=== PATIENT | male | born 1975 | race Caucasian/White ===

== ENCOUNTER 2025-08-23 13:25 | Emergency (ER) | payer MEDICARE, OTHER, SELFPAY ==
--- OUTSIDE RECORDS SUMMARY | 2025-08-23 13:27 | XMS_ITS | Encounter Summary ---
Author Organization [facility] Address [address] [place] [address] Care Team Providers Care Hygiene Assistant Name Role Phone Stephane Matos MD Primary Care Provider Reason for Visit * Reason Comments CHEST SYMPTOMS CHEST PAIN Encounter Details Date Type Department Care Team (Late st Contact Info) Description 08/23/2025 Nurse Triage Careline [address] [place], [place] [phone] [place] [address] [place], [place] [phone] CHEST SYMPTOMS; CHEST PAIN Social History Tobacco Use Types Packs/Day Years Used Date Smoking Tobacco: Former Cigarettes 1 8 1 12/20/1995 - 10/20/2004 Passive Smoke Exposure: Never Smokeless Tobacco: Never Alcohol Use Standard Drinks/Week Comments No 0 (1 standard drink = 0.6 oz pur e alcohol) PHQ-2 Answer Date Recorded PHQ-2 Score 0 04/07/2025 Food Insecurity Answer Date Recorded Does your food run out before you have the money to buy more? No 03/13/2023 Transportation Needs Answer Date Record ed Does a lack of transportatio n keep you from your medical appointments or from getting your medications? No 023 Sex and Gender Information Value Date Recorded Sex Assigned at Not on file Legal Sex Male 3:50 AM CDT Gender Identity Not on file Sexual Orientation Not on file documented as of this encounter Nursing Notes * Sanjuana Barahona, RN - 08/23/2025 1:02 PM CDT 1:02 PM Call transferred from Careline executive receptionist. Pt calling stating 10 days ago he injured his left shoulder while walking his dog. This morning has developed pain in his chest. Situation/Background: pt calling stating 10 days ago he injured his left shoulder. Was walking his dog, was trying to keep his dog away from another dog. This morning developed pain in the left side of his chest muscle/pectoral muscle. Hurts when he takes in a deep breath. Pain comes and goes. Has pain in his shoulder When he moves his arm. Concerned, asking for advice what he should do. Reviewed pertinent medical history (as relates to the call): Yes Reviewed pertinent medications (as relates to the call): NA Reason for Disposition [1] Chest pain lasts > 5 minutes AND [2] age > 30 AND [3] one or more cardiac risk factors (e.g., diabetes, high blood pressure, high cholesterol, obesity with BMI 30 or higher, smoker, or strong family history of heart disease) Protocols used: Chest Bfoi-Uknwi-LP PLAN:advised pt call 911 now. Pt declined. Stated he will drive to the ER. Sanjuana Barahona RN careline * Kasey Medley - 08/23/2025 12:56 PM CDT Verified patient using 3 identifiers: Yes Caller reports the following red flag symptoms: Patient has concerns is having whether or not he ishaving possible chest pain or muscle pain - Injured shoulder 10 days ago while walking his dog Plan: Transferred directly to a CareLine RN. documented in this encounter Plan of Treatment Upcoming Encounters Date Type Department Care Team (Late st Contact Info) Description 08/28/2025 3:10 PM CDT Appointment [facility] [address] [place] [address] [place] [address] [place], [place] [phone] 09/04/2025 3:00 PM CDT Appointment [facility] [address] [place] [address] 10/28/2025 4:00 PM TOP COLLAR BASTER Appointment [facility] [address] [place] [phone] Macy Polanco, [facility] [address] [place], [place] [phone] documented as of this encounter Goals Goal Patient Goal Type Associated Problems Recent Progress Patient-Stated? Author Eating healthy Diabetes Education Diabetes Education No Emerita Will RN, CDE Note: Eating Healthy: I will start counting carbohydrates to try to get 45-60 grams each meal documented as of this encounter Visit Diagnoses Not on filedocumented in this encounter Care Teams Hygiene Assistant Relationship Specialty Start [place] [address] [place], [place] [phone] PCP - General Family Practice 02/10/19 documented as of this encounter
--- OUTSIDE RECORDS SUMMARY | 2025-08-23 13:27 | XMS_ITS | Encounter Summary ---
[facility] Address [address], [place] [address] Care Team Providers Care Steel Inspector Name Role Phone Stephane Feliz MD Primary Care Provider Reason for Visit * Reason Onset Date Comments Refill 07/29/2025 lancets (ACCU-CH EK FASTCLIX) Encounter Details Date Type Department Care Team (Late st Contact Info) Description 07/29/2025 Refill [facility] [address] [place] [address] [place] [address] [place], [place] [phone] Refill (lancets (ACCU-CHEK FASTCLIX)) Social History Tobacco Use Types Packs/Day Years [...] as of this encounter Nursing Notes * Ivett Zimmerman, RN - 08/03/2025 9:16 AM CDT Further Assistance Needed on Refill from Clinician RN reviewed. Signed order needed. Previous medication order has . Review pended order for accuracy and sign if appropriate Requested Prescriptions Pending Prescriptions Disp Refills lancets (ACCU-CHEK FASTCLIX) 100 Each 3 Sig: Use 1 Each to test daily. Test bg 1 time per day * KevinperfectoMark Xrwcomm - 07/29/2025 4:19 PM CDT lancets (ACCU-CHEK FASTCLIX) Medication started: 01/01/2020 Last ordered by STEPHANE FELIZ: 01/02/2023 (939 days ago) QTY: 100, Refills: 3, Sig: use 1 each to test daily. test bg 1 time per day (unchanged) -> The most recent order on 12/22/2024. -> Co-sign for patients 65 years or older or any patient on Medicare -> Refill x 9 months (until due for an office visit) -> Calculate the quantity and number of refills manually. Last qualifying visit: 04/07/2025 (with STEPHANE FELIZ) Next scheduled visit: [facility] Embedded Refills, Reference: [id number], 07/29/2025 4:19:08 PM CDT, Pool: Refill Centralized Services - Primary Care ([id number]) documented in this encounter Plan of Treatment Upcoming Encounters Date Type Department Care Team (Late st Contact Info) Description 08/28/2025 3:10 PM CDT Appointment [facility] [address] [place] [phone] [place] [address] [place], [place] [phone] 09/04/2025 3:00 PM CDT Appointment [facility] [address] [place] [address] 10/28/2025 4:00 PM TRANSFORMER MAKER Appointment [facility] [address] [place] [phone] Macy Polanco, [facility] [address] [place], [place] [phone] documented as of this encounter Goals Goal Patient Goal Type Associated Problems Recent Progress Patient-Stated? Author Eating healthy Diabetes Education Diabetes Education Emerita Nieves, RN, CDE Note: Eating Healthy: I will start counting carbohydrates to try to get 45-60 grams each meal documented as of this encounter Visit Diagnoses Diagnosis Type 2 diabetes mellitus without complication, without long-term current use of insulin (HRC)- Primary documented in this encounter Care Teams Steel Inspector Relationship Specialty [place] [address] [place] [address] PCP - General Family Practice 02/10/19 documented as of this encounter
--- OUTSIDE RECORDS SUMMARY | 2025-08-23 13:27 | XMS_ITS | Encounter Summary ---
Author Organization [facility] Address [address] [place] [address] Care Team Providers Care Cigar Head Pegger Name Role Phone Stephane Matos MD Primary Care Provider [phone] Encounter Details Date Type Department Care Team (Late st Contact Info) Description 11/02/2014 Correspondence External to External, [place] [address] LETTER REQUESTING PRESCRIPTION REORDER Social History Tobacco Use Types Packs/Day Years Used Date Smoking Tobacco: Never Smokeless Tobacco: Never Alcohol Use Standard Drinks/Week Comments No 0 (1 standard drink = 0.6 oz pur e alcohol) Sex and Gender Information Value Date Recorded Sex Assigned at Not on file Legal Sex Male 3:50 AM CDT Gender Identity Not on file Sexual Orientation Not on file 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 [address] 10/28/2025 4:00 PM CEMENT PRODUCTION PLANT OPERATOR [facility] [address] [place] [phone] Macy Polanco, [facility] [address] [place] [address] documented as of this encounter Visit Diagnoses Not on filedocumented in this encounter Care Teams Cigar Head Pegger Relationship Specialty Start [place] [address] [place] [address] PCP - General Family Practice 02/10/19 documented as of this encounter
--- OUTSIDE RECORDS SUMMARY | 2025-08-23 13:27 | XMS_ITS | Encounter Summary ---
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 Not on file Not on file documented as of this encounter Plan of Treatment Upcoming Encounters Date Type Department Care Team (Late st Contact Info) Description 08/28/2025 3:10 PM CDT Appointment [facility] [address] [place] [phone] [place] [address] [place], [place] [phone] 09/04/2025 3:00 PM CDT Appointment [facility] [place] [address] [place] [address] 10/28/2025 4:00 PM RESEARCH KENNEL SUPERVISOR [facility]ment [facility] [address] [place] [phone] Macy Polanco, [facility] [address] [place] [address] documented as of this encounter Goals Goal Patient Goal Type Associated Problems Recent Progress Patient-Stated? Author Eating healthy Diabetes Education Diabetes Education Emerita Nieves, RN, CDE Note: Eating Healthy: I will start counting carbohydrates to try to get 45-60 grams each meal documented as of this encounter Visit Diagnoses Not on filedocumented in this encounter Care Teams Furniture Duster Relationship Specialty Start [place] [address] [place], [place] [phone] PCP - General Family Practice 02/10/19 documented as of this encounter
--- OUTSIDE RECORDS SUMMARY | 2025-08-23 13:27 | XMS_ITS | Clinical Summary ---
Author Organization [facility] Address [address], [place] [address] Care Team Providers Care Private Secretary Name Role Phone Stephane Matos MD Primary Care Provider [phone] Source Comments You are receiving this document as you are listed as the primary care provider,follow-up provider, or the patient has been referred to you for consultation.This is in compliance with the Medicare and[facility] EHR Incentive Program,which states Providers who transition their patient to another setting of careor provider of care or refers their patient to another provider of care shouldprovide summary care record for each transition of care or referral. Aircraft Logs Allergies No known active allergies Medications Multiple Vitamins-Minera ls (MULTI VITAMIN/MINERAL S OR) Active Dacono-3 Fatty Acids 1200 MG 3,000 mg. Active cholecalciferol (VITAMIND3) 50 MCG (2000 UT) tablet Take 2 Tablets (4,000 Units) by mouth daily. Active haloperidol (HALDOL) 2 MG tablet 1 Tablet (2 mg) daily as needed. 06/05/20 17 Active aspirin EC 81 MG enteric coated tablet Take 1 Tablet (81 mg) by mouth daily. Active ALBUterol sulfate HFA 108 (90 Base) MCG/ACT inhalerIndicati ons:Mild intermittent asthma, unspecified whether complicated (HRC) Inhale 2 Puffs every 4 hours as needed for Wheezing. 8.5 g 04/07/20 25 Active metFORMIN XR (GLUCOPHAGE XR) 500 MG 24 hour release tabletIndicatio ns:Type 2 diabetes mellitus without complication, without long-term current use of insulin (HRC) Take 4 Tablets (2,000 mg) by mouth every evening with a meal. 360 Tablet 3 04/07/20 25 Active rosuvastatin (CRESTOR) 10 MG tabletIndicatio ns:Dyslipidemia (HRC) Take 1 Tablet (10 mg) by mouth daily. 90 Tablet 3 04/07/20 25 Active Continuous Glucose Sensor (FREESTYLE DAVID 3 PLUS SENSOR) MISCIndications :Type 2 diabetes mellitus without complication, without long-term current use of insulin (HRC) Use as directed for continuous blood glucose monitoring. Replace sensor every 14 days. 1 Each 1 04/12/20 25 Active lancets (ACCU-CHEK FASTCLIX)Indica tions:Type 2 diabetes mellitus without complication, without long-term current use of insulin (HRC) Use 1 Each to test daily. Test bg 1 time per day 100 Each 3 08/04/20 25 Active empagliflozin (JARDIANCE) 10 MG tabletIndicatio ns:Type 2 diabetes mellitus without complication, without long-term current use of insulin (HRC) Take 1 Tablet (10 mg) by mouth daily. 14 Tablet 07/29/20 25 026 Active empagliflozin (JARDIANCE) 25 MG tabletIndicatio ns:Type 2 diabetes mellitus without complication, without long-term current use of insulin (HRC) Take 1 Tablet (25 mg) by mouth daily. Do not start before August 12, 2025. 90 Tablet 3 08/12/20 25 026 Active blood glucose (ACCU-CHEK GUIDE TEST) test stripIndication s:Type 2 diabetes mellitus without complication, without long-term current use of insulin (HRC) Use to test daily. 100 Each 08/03/20 25 Active lancets (ACCU-CHEK FASTCLIX)Indica tions:Type 2 diabetes mellitus without complication, without long-term current use of insulin (HRC) Use 1 Each to test daily. Test bg 1 time per day 100 Each 3 01/02/20 23 025 Discontinued(* Med change OR same med OR reorder, new dose/direction s) ACCU-CHEK GUIDE test stripsIndicatio ns:Type 2 diabetes mellitus without complication, without long-term current use of insulin (HRC) USE TO TEST DAILY 100 Strip 3 06/30/20 24 025 Discontinued Hospital, Clinic, or Other Facility Administered Medication Ordered Dose Route Frequency Start Date End Date Status paliperidone palmitate (INVEGA TRINZA) MAGGIE 819 mgIndications:Paranoid schizophrenia ([facility]) 819 mg IM EVERY 90 DAYS 09/02/2021 Ac tive Active Problems Problem Noted Date Diagnosed Date Diabetes Education 09/11/2018 Type 2 diabetes mellitus wit hout complication, without long-term current use of insulin 09/03/2018 Dyslipidemia 09/18/2017 Mild intermittent asthma 02/11/2013 Prehypertension 09/19/2010 Obesity 09/03/2006 Overview (06/14/2009): BMI 37 Paranoid schizophrenia 03/19/2006 Overview (08/26/2015): Epic Resolved Problems Problem Noted Date Diagnosed Date Resolved Date Vitamin D deficiency 07/03/2012 015 Prediabetes 06/22/2010 09/03/2018 Hyperlipidemia with target LDL less than 130 06/14/200 9 09/18/2017 Overview (08/04/2015): ICD 10 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 [address] Stephane Matos MD CHEST SYMPTOMS; CHEST PAIN 07/29/2025 Nurse Triage [facility] [address] [place] [phone] Stephane Matos MD High Blood Sugar (300's) 07/29/2025 Refill [facility] [address] [place] [phone] Stephane Matos MD Refill (lancets (ACCU-CHEK FASTCLIX)) 07/29/2025 Refill [facility] [address] [place] [phone] Stephane Matos MD Refill (blood glucose (ACCU-CHEK GUIDE) test strip) 06/01/2025 3:45 PM CDT Nursing Visit [facility] [address] [place], [place] [address] Paranoid schizophrenia (HRC) (Primary Dx) 05/26/[address] [facility] [address] [place], [place] [phone] Stephane Matos MD Medication Questions from Last 3 Months Immunizations Immunization Administration Dates Next Due Flu Vac (3+ yrs) 08/16/2021, 2,09/04/2011,2008,09/04/2008,09/02/2007 H1n1 Miv Nov[employer] 4+ Yr (Injected) 12/08/2009 Influenza (Flucelvax), Prese rv Free QIV 07/31/2019 Influenza IIV4 (Quadrivalent ) 0.5mL ([id number]) 08/24/2023,08/16/2022,08/16/2021,2019,07/31/2019,09/03/2018,09/18/2017,1 ,08/05/2015,08/13/2014, 013 Influenza ccIIV3 6 months+ (Flucelvax) 08/08/2024 Moderna Bivalent 12+ 08/16/2022 Moderna COVID-19 12+ 01/13/2025,08/24/2023 Moderna Monovalent 12+ 09/25/2021,01/10/2021, PCV20 ([id number]) 01/14/2023 PPSV23 (Pneumovax) 11/09/2016 Td, Preservative Free 04/27/2005 Tdap 08/17/2021,06/26/2011 Zoster RZV (Shingrix) 12/15/2023,08/24/2023 Family History Medical History Relation Name Comments Cataract Father Coronary Artery Disease Father Depression Father Diabetes, Type II Father Hypertension Father Cataract Mother Corneal Dystrophy Brother 1 Cancer, Other Brother 2 testicular Asthma Brother 3 Macular Degeneration Maternal Grandmother Cataract Paternal Grandmother Anxiety Sister 2 Obesity Sister 3 Scoliosis Sister 4 Glaucoma Negative Family History Relation Name Status Comments Father Alive Mother Alive Brother 1 Alive Brother 2 Brother 3 Maternal Grandmother Paternal Grandmother Sister 1 Alive Sister 2 Sister 3 Sister 4 Social History Tobacco Use Types Packs/Day Years Used Date Smoking Tobacco: Former Cigarettes 1 8 1 12/20/1995 - 10/20/2004 Passive Smoke Exposure: Never Smokeless Tobacco: Never Tobacco Cessation:Counseling Given: Not Answered Alcohol Use Standard Drinks/Week Comments No 0 [...] on file Sexual Orientation Not on file Last Filed Vital Signs Vital Sign Reading Time Taken Comments Blood Pressure 128/85 06/01/2025 3:43 PM CDT Pulse 81 06/01/2025 3:43 PM CDT Temperature 35.4 C (95.8 F) 09/11/2023 3:51 PM CDT Patient reported Respiratory Rate 18 03/10/2022 8:44 AM CDT Oxygen Saturation 96% 01/31/2024 3:1 5 PM CAST SHELL GRINDER Inhaled Oxygen Concentration - - Weight 118.3 kg (260 lb 12. 8 oz) 04/07/2025 2:12 PM CDT Height 185.8 cm (6' 1.15) 04/07/2025 2 :12 PM CDT Body Mass Index 34.27 04/07/2025 2:12 PM CDT Plan of Treatment Upcoming Encounters Date Type Department Care Team (Late st Contact Info) Description 08/28/2025 3:10 PM CDT Appointment [facility] [address] [place] [phone] [place] [address] [place], [place] [phone] 09/04/2025 3:00 PM CDT Appointment [facility] [place] [address] [place] [address] 10/28/2025 4:00 PM CAST SHELL GRINDER Appointment [facility] [place] [address] [place] [phone] [place] p[place] Quang, [facility] [address] [place] [address] Health Maintenance Due Date Last Done Comments Diabetes: Eye Exam 03/04/2025 03/04/2024, 0 03/04/2024, 02/28/2023, Additional history exists Influenza Vaccine (#1) 2025 , 08/24/2023, 08/16/2022, Additional history exists Diabetes: HGBA1C 08/26/2025 02/24/2025, 11/2024, 08/08/2024, Additional history exists Diabetes: Albumin/Creatinine Ratio, Urine 02/24/2026 02/24/2025, 11/27/2023, 12/29/2022, Additional history exists PSA Screening Discussion 02/24/2026 025, 08/20/2023, 08/20/2023, Additional history exists Diabetes: Creatinine 04/07/2026 04/07/2025, 04/23/2024, 05/04/2023, Additional history exists Diabetes: Foot Exam 04/07/2026 04/07/2025, 01/31/2024, 01/02/2023, Additional history exists Medicare Annual Wellness Visit 04/07/2026 04/07/2025, 01/31/2024, 07/12/2022, Additional history exists FIT Colon Cancer Screening 04/09/202604/09, 05/01/2024, 05/15/2023, Additional history exists Diabetes: Lipid Panel 02/24/2030 02/24/2025 , 08/20/2023, 06/27/2022, Additional history exists DTaP/Tdap/Td Vaccine (3 - Tdap) 08/17/2031 08/17/2021, 06/26/2011, 04/27/2005 HIV Screening (Preventive Services) Completed 11/04/2015 Hep C Screening (Preventive Services) Completed 07/12/2022 Pneumococcal Vaccine 50+ Yrs Completed 01/14/2023, 11/09/2016 Zoster/Shingles Vaccine Completed 12/15/2023, 08/24 COVID-19 Vaccine Completed 08/14/2025, , 08/24/2023, Additional history exists HepA Vaccine Aged Out No longer eligi ble based on patient's age to complete this topic Hib Vaccine Aged Out No longer eligi ble based on patient's age to complete this topic IPV (Polio) Vaccine Aged Out No longe r eligible based on patient's age to complete this topic MCV4 Vaccine Aged Out No longer eligi ble based on patient's age to complete this topic Meningococcal B Vaccine Aged Out No l onger eligible based on patient's age to complete this topic Goals Goal Patient Goal Type Associated Problems Recent Progress Patient-Stated? Author Eating healthy Diabetes Education Diabetes Education No Emerita Will, RN, CDE Note: Eating Healthy: I will start counting carbohydrates to try to get 45-60 grams each meal Procedures Procedure Name Priority Date/Time Associated Diagnosis Comments FIT,OCCULT BLOOD, STOOL -CLINICAL REMINDER Routine 04/09/2025 10:00 AM CDT Screening for colon cancer CREATININE / GFR Routine 04/07/2025 3:21 PM CDT Type 2 diabetes mellitus without complication, without long-term current use of insulin (HRC) PROSTATIC SPECIFIC ANTIGEN(SCREEN) Routine 02/24/2025 10:56 AM CDT Screening for prostate cancer ALBUMIN/CREAT RATIO Routine 02/24/2025 1 0:56 AM CDT Type 2 diabetes mellitus without complication, without long-term current use of insulin (HRC) LIPID PANEL & DIRECT LDL (IF NEEDED) Routine 02/24/2025 10:56 AM CDT Dyslipidemia HGB A1C Routine 02/24/2025 10:56 AM CDT Type 2 diabetes mellitus without complication, without long-term current use of insulin (HRC) HEPATITIS C ANTIBODY, WITH REFLEX (ANTI-HCV) Routine 07/12/2022 4:14 PM CDT Need for hepatitis C screening test HIV ANTIBODY Routine 11/04/2015 11:22 AM CAST SHELL GRINDER Special screening examination for other specified viral diseases from Last 3 Months or Most Recently Relevant to Health Maintenance Results * FIT, OCCULT BLOOD, STOOL CLINICAL REMINDER (04/09/2025 10:00 AM CDT) FIT Specimen 1 Negative Negative 04/14/2025 4:[address] [facility] Stool Non-blood Collection / Unknown 04/09/2025 10:00 AM CDT 04/01/2025 8:17 AM CDT us Stephane Matos MD LAB_1 Final Result Performing Organization Address City/[facility]/ZIP Co de Phone Number [facility] [address] * Creatinine / GFR (04/07/2025 3:21 PM CDT) Creatinine 1.06 0.73 - 1.18 mg/dL 04/07/2025 7:[address] [facility] GFR, Estimated >60 >60 mL/min/1. 73m2 04/07/2025 7:[address] [facility] Blood Venipuncture / Unknown 04/07/2025 3:21 PM CDT 04/07/2025 3:21 PM CDT us Stephane Matos MD LAB_[address] [facility] [address] * Lipid Panel & Direct LDL (if Needed) (02/24/2025 10:56 AM CDT) Cholesterol 155 0 - 199 mg/dL 02/24/2025 3:23 PM CDT [facility] Triglyceride 130 <=149 mg/dL 02/24/2025 3:[address] [facility] HDL Cholesterol 43 >=40 mg/dL 02/24/2025 3:23 PM CDT [facility] LDL, Calculated 86 <130 mg/dL 02/24/2025 3:23 PM CDT [facility] Non HDL Chol, Calculated 112 <=159 mg/dL 02/24/2025 3:[address] [facility] Cholesterol/HDL Ratio 3.6 <=5.0 02/24/2025 3:[address] [facility] Hours Fasting 0.1 8 - 12 Hours 02/24/2025 3:[address] [facility] Blood Venipuncture / Unknown 02/24/2025 10:56 AM CDT 02/24/2025 10:56 AM CDT Stephane Matos MD LAB_1 Final Result Performing Organization Address City/[facility]/ZIP Co de Phone Number [facility] [address] * Prostatic Specific Antigen (Screen) (02/24/2025 10:56 AM CDT) Prostatic Specific Antigen 0.5 0.0 - 4.0 ng/mL 02/24/2025 3:[address] [facility] Blood Venipuncture / Unknown 02/24/2025 10:56 AM CDT 02/24/2025 10:[address] [facility] - 02/24/2025 3:37 PM CDT The Li PSA Chemiluminescent immunoassay is used. Results obtained with different test methods or kits cannot be used interchangeably. Stephane Matos MD LAB_[address] [facility] [address] * Albumin/Creatinine Ratio,Random Urine (02/24/2025 10:56 AM CDT) Albumin/Creati nine Ratio, Urine, Random 4 <30 mg/g 02/24/2025 5:[address] [facility] Albumin, Urine, Random 8.5 mg/L 02/24/2025 5:[address] [facility] Creatinine, Urine, Random 220 >20 mg/dL mg/dL 02/24/2025 5:[address] [facility] Urine Non-blood Collection / Unknown 02/24/2025 10:56 AM CDT 02/24/2025 10:56 AM CDT us Stephane Matos MD LAB_1 Final Result [facility] [address] * (ABNORMAL) Hgb A1C (02/24/2025 10:56 AM CDT) Hemoglobin A1C 7.7(H) <=5.6 % 02/24/2025 3:[address] [facility] Estimated Average Glucose (Calc) 174 < 117 mg/dL 02/24/2025 3:[address] [facility] Comment:Estimated average gl ucose (eAG) converts A1c into glucose units (mg/dL) and estimates average glucose over the past approximately 3 months. The eAG reference interval (<117 mg/dL) corresponds to an A1c of <5.7%. Blood Venipuncture / Unknown 02/24/2025 10:56 AM CDT 02/24/2025 10:[address] [facility] - 02/24/2025 3:45 PM CDT For patients not previously diagnosed with diabetes: 5.7-6.4%: Increased risk for diabetes 6.5% and greater: Diagnostic for diabetes For patients diagnosed with diabetes: <8.0%: Goal of therapy for ages 18-75 Clinicians may recommend a higher or lower goal for specific individuals. Stephane Matos MD LAB_1 Final Result Performing Organization Address [facility] Co de Phone Number [facility] [address] [place] [address] * Hepatitis C Antibody, with Reflex (07/12/2022 4:14 PM CDT) Hepatitis C Antibody Negative (Non Reactive) Negative (Non Reactive) 07/12/2022 7:[address] [facility] Comment:Antibodies to HCV no t detected. Does not exclude the possiblity of exposure to HCV. Blood Venipuncture / Unknown 07/12/2022 4:14 PM CDT 07/12/2022 4:14 PM CDT Stephane Matos MD LAB_1 Final Result Performing Organization Address [facility] de Phone Number [facility] [address] [place] [address] * HIV ANTIBODY (11/04/2015 11:22 AM CAST SHELL GRINDER) Pathologist [facility] HIV 1/2 Antibody Negative (Non Reactive) [facility]GNR [facility] Comment: HIV Antibody testing may be falsely negative during the window period. If the patient has had recent exposure (within the past four weeks), consider contacting Infectious Diseases for clarification. 11/04/2015 11:2 2 AM CAST SHELL GRINDER 11/04/2015 11:28 AM CAST SHELL GRINDER Narrative [facility] - 11/05/2015 10:50 AM CAST SHELL GRINDER [facility], [address] [place] [address] Desmond Travis MD LAB_1 Final Result Performing Organization Address [facility] Co de Phone Number [facility] [phone] from Last 3 Months or Most Recently Relevant to Health Maintenance Insurance MEDICARE MEDICA MEDICARE SUPPLEMENT MEDICARE MEDICA MEDICARE SUPPLEMENT Care Teams Private Secretary Relationship Specialty Start [place] [address] [place] [address] PCP - General Family Practice 02/10/19
--- OUTSIDE RECORDS SUMMARY | 2025-08-23 13:27 | XMS_ITS | Encounter Summary ---
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 [address] 10/28/2025 4:00 PM PCT [facility] [place] [address] [place] [phone] [place] [facility] [address] [place] [address] documented as of this encounter Visit Diagnoses Not on filedocumented in this encounter Care Teams Pastry Assistant Relationship Specialty Start [place] [address] [place] [address] PCP - General Family Practice 02/10/19 documented as of this encounter
--- OUTSIDE RECORDS SUMMARY | 2025-08-23 13:27 | XMS_ITS | Encounter Summary ---
Author Organization [facility] Address [address], [place] [address] Care Team Providers Care Photoengraving Apprentice Name Role Phone Stephane Matos MD Primary Care Provider Reason for Visit * Reason Comments High Blood Sugar 300's Encounter Details Date Type Department Care Team (Late st Contact Info) Description 07/29/2025 Nurse Triage [facility] [address] [place] [phone] [place] [address] [place], [place] [phone] High Blood Sugar (300's) Social History Tobacco Use Types Packs/Day Years [...] as of this encounter Nursing Notes * Raeann Tee - 07/30/2025 9:12 AM CDT CA assisted with scheduling hold per message below. * Afia Ruth RN - 07/30/2025 8:14 AM CDT RN reached out to patient and relayed providers message. Patient verbalized understanding. No further questions or concerns at the time of call. Afia Ruth RN 07/30/2025, 8:15 AM * Stephane Matos MD - 07/29/2025 5:04 PM CDT Start jardiance 10 mg daily Increase to 25 mg in 2 weeks Recommend to watch carbohydrates and sweets Regular daily exercise Hydrate well See me in clinic in 4-6 weeks Rx sent Stephane Matos MD 07/29/2025, 5:10 PM * Doris Ruiz RN - 07/29/2025 4:54 PM CDT Nurse called and advised to continue taking 2000mg Metformin per day. Doris Ruiz RN 07/29/2025, 4:54 PM * Leta Wong - 07/29/2025 4:48 PM CDT Patient called with follow up question - Is he supposed to continue the METFORMIN 2000 mg daily (?) Leta Wong 07/29/2025, 4:49 PM * Doris Ruiz RN - 07/29/2025 4:22 PM CDT Situation/Background (brief explanation of current symptoms/situation): getting consistent blood sugar greater than 300-315 for the past 3weeks. Fasting blood sugar 250-260 eats anything goes to 300+ Reviewed pertinent medical history (as relates to the call): Yes type 2 diabetic. Pt is asymptomatic Reviewed pertinent medications (as relates to the call): Yes Metform 2,000 qd Doris Ruiz RN 07/29/2025, 4:25 PM Reason for Disposition [1] Blood glucose > 300 mg/dL (16.7 mmol/L) AND [2] two or more times in a row Answer Assessment - Initial Assessment Questions 1. BLOOD GLUCOSE: What is your blood glucose level? Has not checked today, while on the phone with nurse blood sugar is 270 11:30 sandwhich and cheese sticks, diet coke 2. ONSET: When did you check the blood glucose? When on the phone with nurse 3. USUAL RANGE: What is your glucose level usually? (e.g., usual fasting morning value, usual evening value) Has not checked for the past couple months, started checking 2-3 months ago 4. KETONES: Do you check for ketones (urine or blood test strips)? If Yes, ask: What does the test show now? Does not 5. TYPE 1 or 2: Do you know what type of diabetes you have? (e.g., Type 1, Type 2, Gestational; doesn't know) Type 2 6. INSULIN: Do you take insulin? What type of insulin(s) do you use? What is the mode of delivery? (syringe, pen; injection or pump)? denies 7. DIABETES PILLS: Do you take any pills for your diabetes? If Yes, ask: Have you missed taking any pills recently? Metformin 2,000 mg per day 8. OTHER SYMPTOMS: Do you have any symptoms? (e.g., fever, frequent urination, difficulty breathing, dizziness, weakness, vomiting) Denies all 9. : Is there any chance you are ? When was your last menstrual period? na Protocols used: Diabetes - High Blood Doaxg-YCMHP-OP Last a1c 7.7 02/24/[address] Matos-pt will start Jardiance 10mg and increase if tolerating, see RX. Pt needs to watch carbohydrates intake. Continue taking Metformin 2000mg qd Hurd Hold Per RN, Scheduling Information Department:family Provider:Carlo Date/time: 08/28 AV Visit Type: follow up diabetes Appt Notes: see above Doris Ruiz RN * Leta Wong - 07/29/2025 4:19 PM CDT Symptoms Describe your symptoms (if pain, include location): Elevated home blood sugar readings have been consistently over 300 When did they start? About 3 weeks Preferred communication method: Phone Call. Is it okay to leave a detailed message on your voicemail? Yes Is there anything else I can help you with today? I can transfer you to talk to a Triage Nurse or I am happy to get you scheduled with your primary care nurse rn or one of their partners for a Video/Phone Visit to take care of your concern. Which would you prefer? Triage Nurse documented in this encounter Plan of Treatment Upcoming Encounters Date Type Department Care Team (Late st Contact Info) Description 08/28/2025 3:10 PM CDT Appointment [facility] [address] [place] [phone] [place] [address] [place], [place] [phone] 09/04/2025 3:00 PM CDT Appointment [facility] [place] [address] [place] [address] 10/28/2025 4:00 PM [place] Appointment [facility] [place] [address] [place] [phone] [place], [facility] [address] [place], [place] [phone] documented as of this encounter Goals Goal [...] Primary documented in this encounter Care Teams Photoengraving Apprentice Relationship Specialty Start [place] [address] [place] [address] PCP - General Family Practice 02/10/19 documented as of this encounter
--- OUTSIDE RECORDS SUMMARY | 2025-08-23 13:27 | XMS_ITS | Encounter Summary ---
Author Organization [facility] Address [address], [place] [address] Care Team Providers Care Show Dog Trainer Name Role Phone Stephane Feliz MD Primary Care Provider Reason for Visit * Reason Onset Date Comments Refill 07/29/2025 blood glucose (A CCU-CHEK GUIDE) test strip Encounter Details Date Type Department Care Team (Late st Contact Info) Description 07/29/2025 Refill [facility] [address] [place] [address] [place] [address] [place], [place] [phone] Refill (blood glucose (ACCU-CHEK GUIDE) test strip) Social History Tobacco Use Types Packs/Day Years [...] as of this encounter Nursing Notes * Adia Thapa, RN - 08/03/2025 8:30 AM CDT Refilled per standing order. * Mark Tilley Xrwcomm - 07/29/2025 4:19 PM CDT blood glucose (ACCU-CHEK GUIDE) test strip Medication started: 01/02/2020 Last ordered by STEPHANE FELIZ: 06/30/2024 (394 days ago) QTY: 100, Refills: 3, Sig: use to testdaily (changed but equivalent) -> Co-sign for patients 65 years or older or any patient on Medicare -> Refill x 9 months (until due for an office visit) -> Calculate the quantity and number of refills manually. Last qualifying visit: 04/07/2025 (with STEPHANE FELIZ) Next scheduled visit: [facility] Embedded Refills, Reference: [id number], 07/29/2025 4:19:08 PM CDT, Pool: Refill Centralized Services - Primary Care ([id number]) documented in this encounter Plan of Treatment Upcoming Encounters Date Type Department Care Team (Late st Contact Info) Description 08/28/2025 3:10 PM CDT Appointment [facility] [address] [place] [phone] [place] [address] [place], [place] [phone] 09/04/2025 3:[address] [facility] [address] [place] [address] 10/28/2025 4:00 PM ORAL AND MAXILLOFACIAL PATHOLOGIST Appointment [facility] [place] [address] [place] [phone] Macy Polanco, [facility] [address] [place], [place] [phone] documented as of this encounter Goals Goal Patient Goal Type Associated Problems Recent Progress Patient-Stated? Author Eating healthy Diabetes Education Diabetes Education Emerita Nieves, RN, CDE Note: Eating Healthy: I will start counting carbohydrates to try to get 45-60 grams each meal documented as of this encounter Visit Diagnoses Diagnosis Type 2 diabetes mellitus without complication, without long-term current use of insulin (HRC) documented in this encounter Care Teams Show Dog Trainer Relationship Specialty Start [place] [address] [place], [place] [phone] PCP - General Family Practice 02/10/19 documented as of this encounter
--- OUTSIDE RECORDS SUMMARY | 2025-08-23 13:27 | XMS_ITS | Encounter Summary ---
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 [address] 10/28/2025 4:00 PM PRINCIPAL SOLUTIONS ARCHITECT [facility]ment [facility] [place] [address] [place] [address] Macy Polanco, [facility] [address] [place] [address] documented as of this encounter Visit Diagnoses Not on filedocumented in this encounter Care Teams Front Desk Receptionist Relationship Specialty Start [place] [address] [place] [address] PCP - General Family Practice 02/10/19 documented as of this encounter
--- OUTSIDE RECORDS SUMMARY | 2025-08-23 13:27 | XMS_ITS | Encounter Summary ---
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 [address] 10/28/2025 4:00 PM PARTS COUNTER ASSOCIATE Appointment [facility] [place] [address] [place] [phone] Macy Ploanco, [facility] [address] [place], [place] [phone] documented as of this encounter Goals Goal Patient Goal Type Associated Problems Recent Progress Patient-Stated? Author Eating healthy Diabetes Education Diabetes Education Emerita Nieves, RN, CDE Note: Eating Healthy: I will start counting carbohydrates to try to get 45-60 grams each meal documented as of this encounter Visit Diagnoses Not on filedocumented in this encounter Care Teams Agricultural Service Technician Relationship Specialty Start Date End Date Stephane [place] [id number] [place] [phone] PCP - General Family Practice 02/10/19 documented as of this encounter
--- OUTSIDE RECORDS SUMMARY | 2025-08-23 13:27 | XMS_ITS | Clinical Summary ---
Author Organization [facility] Address [address] [place] [address] Care Team Providers Care Ore Digger Name Role Phone No Ref-Primary, Physician Primary Care Provider Allergies No known active allergies Medications cholecalciferol 50 MCG (1999) tablet Take 4,000 Units by mouth Active aspirin (ASA) 81 MG EC tablet Take 1 tablet by mouth daily Active paliperidone (INVEGA TRINZA) 819 MG/2.63ML MAGGIE intramuscular 3 month injection Inject 819 mg into the muscle 1 Active rosuvastatin (CRESTOR) 10 MG tablet Take 10 mg by mouth daily 3 Active albuterol (PROAIR HFA/PROVENTIL HFA/VENTOLIN HFA) 108 (90 Base) MCG/ACT inhaler Inhale 2 puffs into the lungs every 4 hours as needed 3 Active haloperidol decanoate (HALDOL DECANOATE) 100 MG/ML injection Inject into the muscle every 28 days Active Active Problems No known active problems Social History Tobacco Use Types Packs/Day Years Used Date Smoking Tobacco: Former Cigarettes Passive Smoke Exposure: Never Smokeless Tobacco: Never Adolescent Education Answer Date Record ed Getting School Help Needed Not on file 08/19 Sex and Gender Information Value Date Recorded Sex Assigned at Not on file Legal Sex Male 4:40 AM CVT RN Gender Identity Not on file Sexual Orientation Not on file Last Filed Vital Signs Vital Sign Reading Time Taken Comments Blood Pressure 128/81 04/10/2023 2:38 PM CDT Pulse 84 04/10/2023 2:38 PM CDT Temperature 36.4 C (97.5 F) 04/10/2023 2:38 PM CDT Respiratory Rate - - Oxygen Saturation 97% 04/10/2023 2:38 PM CDT Inhaled Oxygen Concentration - - Weight - - Height - - Body Mass Index - - Plan of Treatment Health Maintenance Due Date Last Done Comments ADVANCE CARE PLANNING 1973 ANNUAL REVIEW OF HM ORDERS 1973 CT COLONOGRAPHY 1973 FIT 1973 FLEX SIG 1973 LIPID 1973 sDNA (Cologuard) 1973 COLONOSCOPY 1983 COLORECTAL CANCER SCREENING 1983 HIV SCREENING 1988 HEPATITIS C SCREENING 1991 HEPATITIS B VACCINE (1 of 3 - 19+ 3-dose series) 1992 DIABETES SCREENING 11/03/2008 11/03/2005 MEDICARE ANNUAL WELLNESS VISIT 06/26/2012 06/26/2011, 06/15/2010, 06/14/2009 LUNG CANCER SCREENING 2023 ZOSTER VACCINE (1 of 2) 2023 PHQ-2 (once per calendar year) 2024 COVID-19 VACCINE (2024- season) 2025 08/16/2022, 09/25/2021, 01/10/2021, Additional history exists INFLUENZA VACCINE (#1) 2025 , 08/16/2021, 08/16/2021, Additional history exists DTAP/TDAP/TD VACCINE (3 - Td or Tdap) 08/17/2031 08/17/2021, 06/26/2011, 04/27/2005 PNEUMOCOCCAL VACCINE 50+ YEARS Completed 01/14/2023, 11/09/2016 HPV VACCINE (No Doses Required) Completed MENINGITIS VACCINE Aged Out No longer eligible based on patient's age to complete this topic Procedures Procedure Name Priority Date/Time Associated Diagnosis Comments BASIC METABOLIC PANEL Timed 11/03/2005 7:50 PM CVT RN from Last 3 Months or Most Recently Relevant to Health Maintenance Results * (ABNORMAL) Basic metabolic panel (11/03/2005 7:50 PM CVT RN) Sodium 141 133 - 144 mmol/L MISYS Potassium 4.1 3.4 - 5.3 mmol/L MISYS Chloride 106 94 - 109 mmol/L MISYS Carbon Dioxide 25 20 - 32 mmol/L MISYS Glucose 150(H) 60 - 110 mg/dL MISYS Urea Nitrogen 14 5 - 24 mg/dL MISYS Creatinine 1.28 0.80 - 1.50 mg/dL MISYS GFR Estimate 69 >60 mL/min/1.7 m2 MISYS GFR Estimate If Black >80 >60 mL/min/1.7 m2 MISYS Calcium 9.5 8.5 - 10.4 mg/dL MISYS Anion Gap 10 6 - 17 mmol/L MISYS 11/03/2005 7:50 PM CVT RN 11/03/2005 7:30 PM CVT RN Jacob Christy PA-C LAB - BLOOD ORDERABLES Final Result MISYS from Last 3 Months or Most Recently Relevant to Health Maintenance Insurance [employer] MEDICARE Care Teams Ore Digger Relationship Specialty Start Date End Date No Ref-Primary, Physician PCP - General 04/10/23
--- OUTSIDE RECORDS SUMMARY | 2025-08-23 13:27 | XMS_ITS | Encounter Summary ---
Author Organization [facility] Address [address] [address] Care Team Providers Care Security Incident Response Specialist Name Role Phone Stephane Matos MD Primary Care Provider [phone] Encounter Details Date Type Department Care Team (Late st Contact Info) Description 02/10/2013 Scanned History External to Transferred Record, Provider [facility] RECORDS Social History Tobacco Use Types Packs/Day Years [...] on file documented as of this encounter Progress Notes * Transferred Record, Provider - 02/10/2013 12:00 AM CDT R MAIN PIPE LAYER documented in this encounter Plan of Treatment Upcoming Encounters Date Type Department Care Team (Late st Contact Info) Description 08/28/2025 3:10 PM CDT Appointment [facility] [address] [place] [phone] [place] [address] [place], [place] [phone] 09/04/2025 3:00 PM CDT Appointment [facility] [place] [address] [place] [address] 10/28/2025 4:00 PM WATER MAIN PIPE LAYER Appointment [facility] [place] [address] [place] [phone] Macy Polanco, [facility] [address] [place] [address] documented as of this encounter Visit Diagnoses Not on filedocumented in this encounter Care Teams Security Incident Response Specialist Relationship Specialty [place] [address] [place] [address] PCP - General Family Practice 02/10/19 documented as of this encounter
--- OUTSIDE RECORDS SUMMARY | 2025-08-23 13:27 | XMS_ITS | Encounter Summary ---
Author Organization 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 file Not on file documented as of this encounter Plan of Treatment Upcoming Encounters Date Type Department Care Team (Late st Contact Info) Description 08/28/2025 3:10 PM CDT Appointment [facility] [address] [place] [phone] [place] [address] [place] [address] 09/04/2025 3:00 PM CDT [facility] [place] [address] [place] [address] 10/28/2025 4:00 PM ORACLE ADF CONSULTANT [facility]ment [facility] [place] [address] [place] [phone] Macy Polanco, [facility] [address] [place], [place] [phone] documented as of this encounter Goals Goal Patient Goal Type Associated Problems Recent Progress Patient-Stated? Author Eating healthy Diabetes Education Diabetes Education Emerita Nieves, RN, CDE Note: Eating Healthy: I will start counting carbohydrates to try to get 45-60 grams each meal documented as of this encounter Visit Diagnoses Not on filedocumented in this encounter Care Teams Optical Designer Relationship Specialty [place] [address] [place] [address] PCP - General Family Practice 02/10/19 documented as of this encounter
--- OUTSIDE RECORDS SUMMARY | 2025-08-23 13:27 | XMS_ITS | Encounter Summary ---
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 [address] 10/28/2025 4:00 PM STEVEDORE HOLD Appointment [facility] [place] [address] [place] [address] Macy Polanco, [facility] [address] [place] [address] documented as of this encounter Visit Diagnoses Not on filedocumented in this encounter Care Teams Promotions Executive Producer Relationship Specialty Start [place] [address] [place] [address] PCP - General Family Practice 02/10/19 documented as of this encounter
[2025-08-23 13:31] VITALS: BP 130/84; PULSE 73; RESP 18; TEMP 36.8; O2SAT 93; BMI 33.7
--- NOTE | 2025-08-23 13:42 | CRLHL7_ITS ---
For Patients: As a result of the Century Cures Act, medical imaging exams and procedure reports are released immediately into your electronic medical record. You may view this report before your referring provider. If you have questions, please contact your health care provider. INDICATION: Shortness of breath TECHNIQUE: Two view chest. FINDINGS: The lungs are clear. The heart, mediastinum and pulmonary vessels are of normal size. There is no evidence of pleural disease. IMPRESSION: Negative chest. Dictated by Conchis Maciel MD @ 08/23/2025 2:21:12 PM (Electronically Signed)
--- NOTE | 2025-08-23 13:52 | ED.GENADULT ---
HPI - General Adult General Chief complaint: Chest Pain Stated complaint: Left pectoral muscle hurts Time Seen by Provider: 08/23/25 13:36 Source: patient Mode of arrival: ambulatory Limitations: no limitations History of Present Illness HPI narrative: 50-year-old male coming in today complaining of left-sided chest pain. Pain is been present for approximately 4-1/2 hours. 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 He states that moving the left arm is what makes him feel the discomfort. If he is standing still he is pain free. He is not short of breath. He denies diaphoresis or dizziness. He states that about a week and a half ago he was walking his dog, holding the leash with the left hand in the dog lunged holding his arm. Please been asymptomatic until today. Denies any fevers or chills. He denies any rashes or bruising. Pain does not radiate into the arm or the neck or jaw. Patient is concerned today he is having a heart attack. Past medical history significant for schizophrenia, diabetes, hyperlipidemia. Patient denies tobacco use. Related Data Home Medications ?Medication ?Instructions ?Recorded ?Confirmed empagliflozin 10 mg tablet 10 mg PO DAILY 08/23/25 08/23/25 (Jardiance) empagliflozin 25 mg tablet 25 mg PO DAILY 08/23/25 08/23/25 (Jardiance) metformin 500 mg tablet,extended 2,000 mg PO QPM 08/23/25 08/23/25 release 24 hr paliperidone palm (3 month) IM 08/23/25 rosuvastatin 10 mg tablet 10 mg PO DAILY 08/23/25 08/23/25 Allergies Allergy/AdvReac Type Severity Reaction Status Date / Time No Known Drug Allergies Allergy Verified 08/23/25 13:34 Review of Systems Status of ROS: Reports: 10 or more systems reviewed and unremarkable except as noted in History and below Exam Narrative: Exam Narrative: Well-nourished well-developed patient in no acute distress. Alert and oriented. Answers questions appropriately. Mood and affect are appropriate. Thoughts are goal oriented and rational. No tangential or magical thinking noted. Patient speaks in full sentences without needing to catch his breath. HEENT: Normocephalic atraumatic. Pupils are equally round reactive to light. Extraocular muscles are intact. Conjunctivae are moist without any icterus noted. Moist mucous membranes. Posterior pharynx is normal. Neck is soft without tenderness. The Cardiovascular: Heart is regular rate and rhythm S1 and S2 are present without any murmurs. Lungs: Clear to auscultation bilaterally no wheezes rhonchi or rales are appreciated. Patient states that he feels a discomfort when he takes a deep breath. Abdomen: Soft and nontender nondistended with normal bowel sounds. Skin: Well perfused without any obvious rashes. Chest wall unremarkable. Patient does have very mild discomfort when he has to externally rotate against resistance. I cannot reproduce his pain with palpation of the chest wall. Const: Vital Signs, click to edit/add: Vital Signs - 24 hr 08/23/25 13:31 Temperature 98.2 F Pulse Rate [Pulse Oximeter] 73 Respiratory Rate 18 Blood Pressure [Ri ght Upper Arm] 130/84 Pulse Oximetry 93 Oxygen Delivery Me thod Room Air Course Course ED Course: Patient's discomfort does seem to be quite musculoskeletal in nature. However he is quite concerned about underlying condition so we did proceed with a few studies. We did do an EKG which showed normal sinus rhythm with sinus arrhythmia, pulse 69. Normal QRS, QTC and CO intervals. Chest x-ray, read by me, does not show any acute abnormalities. CBC was normal. Normal CRP and ESR. Troponin is 0. Vital Signs Vital signs: Initial Vital Signs Temperature 98.2 F 08/23/25 13:31 Temperature Source Temporal Artery Scan 08/23/25 13:31 Pulse Rate 73 08/23/25 13:31 Respiratory Rate 18 08/23/25 13:31 Blood Pressure 130/84 08/23/25 13:31 Blood Pressure Mean 99 08/23/25 13:31 Blood Pressure Position Sitting 08/23/25 13:31 Pulse Oximetry 93 08/23/25 13:31 Oxygen Delivery Method Room Air 08/23/25 13:31 Vital Signs Temperature 98.2 F 08/23/25 13:31 Pulse Rate 73 08/23/25 13:31 Respiratory Rate 18 08/23/25 13:31 Blood Pressure 130/84 08/23/25 13:31 Pulse Oximetry 93 08/23/25 13:31 Oxygen Delivery Method Room Air 08/23/25 13:31 Temperature 98.2 F 08/23/25 13:31 Pulse Rate 73 08/23/25 13:31 Respiratory Rate 18 08/23/25 13:31 Blood Pressure 130/84 08/23/25 13:31 Pulse Oximetry 93 08/23/25 13:31 Oxygen Delivery Method Room Air 08/23/25 13:31 Medical Decision Making MDM Narrative Medical decision making narrative: 50-year-old male with chest pain which appears to be very much musculoskeletal in nature. We discussed symptomatic treatment and patient is reassured. Lab Data Lab results reviewed: Yes I reviewed the patient's lab results Labs: Lab Results 08/23/25 Range/Units 13:57 WBC 6.15 (4.50-11.00) K/uL RBC 4.96 (4.30-5.90) m/uL Hgb 15.0 (13.5-17.5) gm/dL Hct 44.3 (37.0-53.0) % MCV 89 (80-100) fL MCH 30 (26-34) pg MCHC 34 (32-36) gm/dL RDW Coeff of Omi 12.7 (11.5-15.5) % Plt Count 187 (140-440) K/uL Neut % (Auto) 64.6 (42.0-72.0) % Lymph % (Auto) 24.7 (20-44) % Nance % (Auto) 8.1 (0.0-11.0) % Eos % (Auto) 2.1 (0.0-7.0) % Baso % (Auto) 0.3 (0.0-3.0) % Neut # (Auto) 3.97 (1.7-7.0) K/uL Lymph # (Auto) 1.52 (0.90-2.90) K/uL Nance # (Auto) 0.50 (0.00-0.90) K/UL Eos # (Auto) 0.13 (0.00-0.50) K/uL Baso # (Auto) 0.02 (0.00-0.30) K/uL Abs Immat Gran (auto) 0.01 (0.00-0.30) K/uL Imm/Tot Granulo (auto) 0.2 % ESR 5 (2-15) mm/hr Troponin I < 0.01 (0.01-0.04) ng/mL C-Reactive Protein < 0.5 L (0.5-1.0) mg/dL Imaging Data Chest x-ray: Attestation: I have reviewed the pertinent imaging results. Radiologist's impression: TECHNIQUE: Two view chest. FINDINGS: The lungs are clear. The heart, mediastinum and pulmonary vessels are of normal size. There is no evidence of pleural disease. IMPRESSION: Negative chest. ECG Data Attestation: I personally reviewed and interpreted this ECG as follows: Discharge Plan Discharge Clinical Impression: Acute chest wall pain Patient Disposition: Home, Self-Care Condition: Stable Additional Instructions: Your pain appears to be musculoskeletal in nature. Okay to use heat to the chest wall as needed- use for 20 minutes at a time and do not apply heat directly to the skin. Okay to use Tylenol or ibuprofen as needed/as directed. Prescriptions: No Action metformin 500 mg tablet extended release 24 hr 2,000 mg PO QPM rosuvastatin 10 mg tablet 10 mg PO DAILY Jardiance 25 mg tablet 25 mg PO DAILY Jardiance 10 mg tablet 10 mg PO DAILY paliperidone palm (3 month) [Dolores Ramírez] IM Follow Up/Referrals: Stephane Matos MD [Primary Care Provider, Family Practice] Stand Alone Forms: MyHealth Info Instructions
[2025-08-23 14:04] LABS: Hematocrit* 44.3 % (37.0-53.0); Hemoglobin* 15.0 gm/dL (13.5-17.5); Immature Granulocytes Abs Auto 0.01 K/uL (0.00-0.30); Immature Granulocytes Pct Auto 0.2 %; Lymphocytes Absolute Auto 1.52 K/uL (0.90-2.90); Mean Corpuscular HGB Conc 34 gm/dL (32-36); Mean Corpuscular Hemoglobin 30 pg (26-34); Mean Corpuscular Volume 89 fL (80-100); RDW Coefficient of Variation % 12.7 % (11.5-15.5); Red Blood Count* 4.96 m/uL (4.30-5.90); White Blood Count* 6.15 K/uL (4.50-11.00)
[2025-08-23 14:09] LABS: Slide Review Reflex No
[2025-08-23 14:46] LABS: Erythrocyte SedimentationRate* 5 mm/hr (2-15)
== END 2025-08-23 15:00 | disposition home or self-care (01) ==
PROVIDERS: Emergency Provider Family Medicine; PCP Family Medicine
DX: R07.89 Other chest pain (principal); F20.9 Schizophrenia, unspecified; E11.9 Type 2 diabetes mellitus without complications; E78.5 Hyperlipidemia, unspecified
CPT/HCPCS: 36415; 71046; 84484; 85025; 85651; 86140; 93005; 99284; 99285